=== PATIENT | male | born 1995 | race Caucasian/White ===

== ENCOUNTER 2016-12-10 06:28 | Emergency (ER) | payer BC, OTHER ==
[~2016-12-10] VITALS: Ht 193 cm; Wt 131.5 kg
--- NOTE | 2016-12-10 08:23 | Diagnostic Imaging Report ---
INDICATION: Lower back pain after lifting a breaker box at work. Pain radiating to the left kidney. FINDINGS: Frontal and lateral views of the lumbar spine demonstrate mild scoliosis. Disc spaces are of normal width. There is normal ossification. No fracture or subluxation is present. IMPRESSION: There is mild scoliosis. Dictated by: Dictated on workstation # [id number]
--- NOTE | 2016-12-10 08:32 | ED Back Pain ---
General Chief Complaint: Back Problems Stated Complaint: WC-LEFT BACK INJURY & LEFT LEG PAIN Nursing Triage Note: PT TO ED 6 FROM WORK FOR C/O LOWER BACK PAIN, RADIATING TO LT FLANK, HIP ET LEG ONSET AT WORK WHILE LIFTING A "BREAKER BOX". Nursing Sepsis Screen: No Definite Risk Source of Information: Patient Exam Limitations: No Limitations History of Present Illness Time Seen by Provider: 07:45 Initial Comments The patient is a 21-year-old white male employed by [employer]. He reports that at 0430 this morning he and another fellow were lifting a transformer at work. This had rather considerable bulk and he estimated the weight to be about 4-500 pounds. They had picked it up and maneuvered it into position and then set it back down. When he stood up he immediately felt back pain and some radiation from the buttocks to the posterior thigh. He denies previous back pain or injury Timing/Duration: 4-6 Hours Pain/Injury Location: Back Radiation: Buttocks, Lower Legs (left posterior) Method of Injury: Other (lifting) Allergies and Home Medications Allergies Coded Allergies: No Known Drug Allergies (Unverified , 12/10/16) Home Medications No Active Prescriptions or Reported Meds Constitutional: see HPI EENTM: no symptoms reported Respiratory: no symptoms reported Cardiovascular: no symptoms reported Gastrointestinal: no symptoms reported Genitourinary: no symptoms reported Musculoskeletal: see HPI, back pain Skin: no symptoms reported Psychiatric/Neurological: No Symptoms Reported Past Cnywgdn-Yopmto-Akpgrs Hx Patient Social History Alcohol Use: Occasionally Uses Recreational Drug Use: No Smoking Status: Never a Smoker Recent Foreign Travel: No Contact w/Someone Who Travel: No Recent Infectious Disease Expo: No Recent Hopitalizations: No Surgeries HX Surgeries: Yes Surgeries: Adenoidectomy, Tonsillectomy Respiratory Hx Respiratory Disorders: No Cardiovascular Hx Cardiac Disorders: No Neurological Hx Neurological Disorders: No Reproductive System Hx Reproductive Disorders: No Genitourinary Hx Genitourinary Disorders: No Gastrointestinal Hx Gastrointestinal Disorders: No Musculoskeletal Hx Musculoskeletal Disorders: No Endocrine Hx Endocrine Disorders: No HEENT HX ENT Disorders: No Cancer Hx Cancer: No Psychosocial Hx Psychiatric Problems: No Integumentary HX Skin/Integumentary Disorder: No Blood Transfusions Hx Blood Disorders: No Adverse Reaction to a Blood Tr: No Physical Exam Vital Signs Vital Sign - Last 12Hours 12/10/16 06:37 Temp 97.7 Pulse 103 Resp 20 B/P (MAP) 183/114 Pulse Ox 99 O2 Delivery Room Air Capillary Refill : Less Than 3 Seconds General Appearance: Other (obese) HEENT: Normal ENT Inspection Neck: Normal Inspection Cardiovascular: Regular Rate, Rhythm, No Edema, No Gallop, No JVD, No Murmur, Normal Peripheral Pulses Respiratory: Chest Non Tender, Lungs Clear, Normal Breath Sounds, No Accessory Muscle Use, No Respiratory Distress, Accessory Muscle Use Comments He carries himself tilted to the left and bears less weight on the left foot. There is pain to rightward flexion and to rotation. Deep tendon reflexes at the knees are 0 bilaterally. There is pain to palpation on the left paravertebral muscles and at the sciatic notch. He dorsiflexes the feet equally bilaterally. Progress/Results/Core Measures Results/Orders My Orders Orders - VINCENT RAM MD Lumbar Spine - 2-3 Views (12/10/16 06:58) Vital Signs/I&O Vital Sign - Last 12Hours 12/10/16 06:37 Temp 97.7 Pulse 103 Resp 20 B/P (MAP) 183/114 Pulse Ox 99 O2 Delivery Room Air Blood Pressure Mean: 137 Departure Impression Impression: Primary Impression: Lumbar radiculopathy Additional Impression: Back strain Disposition: 01 HOME, SELF-CARE Condition: Stable/Unchanged Departure-Patient Inst. Decision time for Depature: 08:36 Referrals: NO,LOCAL PHYSICIAN (PCP) Primary Care Physician Patient Instructions: Lumbar Muscle Strain (DC) Add. Discharge Instructions: All discharge instructions reviewed with patient and/or family. Voiced understanding. Heat to low back area. Use Lortab and Flexeril as prescribed. Follow-up with occupational health. If you are unable to flex your feet upward return to emergency room. If no improvement in symptoms in 2 weeks you may need additional studies. These should be arranged through occupational health. Scripts [Flexeril] No Conflict Check 10 MG ttwice a day, #20 Prov: VINCENT RAM MD 12/10/16 Hydrocodone/Acetaminophen (Lortab 10-325 mg Tablet) 1 Each Tablet 1 EACH PO 44 times a day, #20 TAB Prov: VINCENT RAM MD 12/10/16 VINCENT RAM MD Dec 10, 2016 08:31
[2016-12-10] MEDS ORDERED: Flexeril (08:39)
[2016-12-10] MEDS ORDERED: HYDR-3731 PO (08:39)
[2016-12-10 08:47] VITALS: BP 159/100
--- OUTSIDE RECORDS SUMMARY | 2016-12-13 08:14 | XMS REPORT | Continuity of Care Document ---
Author Author [facility] Organization [facility] Address Unknown Phone Unavailable Allergies Medications Problems Procedures Results Encounters ACCT No. Visit Date/Time Discharge Status Pt. Type Provider Facility Loc./Unit Complaint [id number] 06/10/2013 09:07:00 2012 23:59:59 CLS Outpatient
== END 2016-12-10 08:47 | disposition home or self-care (01) ==
LOC: EDUNIT# 06:28 → ER 06:31
DX: S39.012A Strain of muscle, fascia and tendon of lower back, initial encounter (principal); M54.16 Radiculopathy, lumbar region; X50.0XXA Overexertion from strenuous movement or load, initial encounter; Y92.59 Other trade areas as the place of occurrence of the external cause; Y99.0 Civilian activity done for income or pay
CPT/HCPCS: 72100; 99281